=== PATIENT | female | born 1960 | race Caucasian/White ===

== ENCOUNTER 2016-05-19 09:57 | Day surgery (SDC) | payer BC ==
--- NOTE | ~2016-05-19 | EGD ---
EGD REPORT [facility] [address] [address] NAME: JUJU CARRILLO : 56 STATUS : [facility]#: [id number] AGE: 56 ADM/REG DATE : 05/19/16 MR#: [id number] REPORT SERV DATE: 05/19/16 DICTATED BY: COURTNEY MUJICA DATE: 05/19/16 REPORT STATUS : Draft [facility]: [facility] DATE: 05/19/16 Endoscopy Center Patient Name: Juju Carrillo Date of : 1960 Attending MD: COURTNEY MUJICA MD Procedure Date No Time: 05/19/2016 Procedure: Upper GI endoscopy Indications: Dysphagia Referring MD: IKE MENEZES Medicines: Monitored Anesthesia Care Complications: No immediate complications. Procedure: Pre-Anesthesia Assessment: - ASA Grade Assessment: III - A patient with severe systemic disease. After obtaining informed consent, the endoscope was passed under direct vision. Throughout the procedure, the patient's blood pressure, pulse, and oxygen saturations were monitored continuously. The GIF [id number] was introduced through the mouth, and advanced to the second part of duodenum. The upper GI endoscopy was accomplished without difficulty. The patient tolerated the procedure well. Findings: No endoscopic abnormality was evident in the esophagus to explain the patient's complaint of dysphagia. It was decided, however, to proceed with dilation of the entire esophagus. A guidewire was placed and the scope was withdrawn. Dilation was performed with a Savary dilator with mild resistance at 45 Fr and mild resistance at 48 Fr. The Z-line was irregular and was found at the gastroesophageal junction. Biopsies were taken with a cold forceps for histology. Localized mildly erythematous mucosa without bleeding was found in the gastric antrum. Biopsies were taken with a cold forceps for histology. The duodenal bulb and 2nd part of the duodenum were normal. The cardia and gastric fundus were normal on retroflexion. Impression: - No endoscopic esophageal abnormality to explain patient's dysphagia. Esophagus dilated. Dilated. - Z-line irregular, at the gastroesophageal junction. Biopsied. - Erythematous mucosa in the antrum. Biopsied. - Normal duodenal bulb and 2nd part of the duodenum. Recommendation: - Patient has a contact number available for emergencies. The signs and symptoms of potential delayed EGD REPORT [address] [place]. [address] NAME: JUJU CARRILLO : 56 STATUS : [facility]#: [id number] AGE: 56 ADM/REG DATE : 05/19/16 MR#: [id number] REPORT SERV DATE: 05/19/16 DICTATED BY: COURTNEY MUJICA DATE: 05/19/16 REPORT STATUS : Draft [facility]: [facility] DATE: 05/19/16 complications were discussed with the patient. Return to normal activities tomorrow. Written discharge instructions were provided to the patient. - Regular diet. - Continue present medications. - Await pathology results. - Follow an antireflux regimen. - Return to GI clinic PRN. Procedure Code(s): --- Professional --- 54615, Esophagogastroduodenoscopy, flexible, transoral; with insertion of guide wire followed by passage of dilator(s) through esophagus over guide wire 35615, Esophagogastroduodenoscopy, flexible, transoral; with biopsy, single or multiple Diagnosis Code(s): --- Professional --- R13.10, Dysphagia, unspecified K22.8, Other specified diseases of esophagus K31.9, Disease of stomach and duodenum, unspecified CPT copyright 2013 [employer]. All rights reserved. The codes documented in this report are preliminary and upon fuel cell builder review may be revised to meet current compliance requirements. COURTNEY MUJICA MD 05/19/2016 12:22 PM This report has been signed electronically. Number of Addenda: 0 Note Initiated On: 05/19/2016 11:56 AM Scope Withdrawal Time 0 hours 0 minutes 0 seconds [id number] [id number]
[~2016-05-19 09:57] MED LIST: ALTA2.5 PO; AMB10 PO; ASA5GR PO; ASAB PO; ATV.5 PO; CALTRA600D PO; COQ-10200 MG PO; COREG3 PO; COZ25 PO; CRESTOR5 MG PO; CYMBALTA30 PO; EFFIENT10 PO; HORMONE PATCH TOP; LIPITOR20 PO; LORTAB 5 PO; NORCO1 TA1 PO; P5 PO; PREV30 PO; VIVELLE SY0.1 MG/24 TOP; WELLXL150 PO; ZOL50 PO
== END 2016-05-19 23:59 | disposition home or self-care (01) ==
LOC: DMU 09:57
PROVIDERS: Internal Medicine Gastroenterology
PROC: 0DB48ZX Excision of Esophagogastric Junction, Via Natural or Artificial Opening Endoscopic, Diagnostic (ICD-10-PCS; 2016-05-19)
PROC: 0D758ZZ Dilation of Esophagus, Via Natural or Artificial Opening Endoscopic (ICD-10-PCS; principal; 2016-05-19 11:30)
PROC: 0DB68ZX Excision of Stomach, Via Natural or Artificial Opening Endoscopic, Diagnostic (ICD-10-PCS; 2016-05-19 11:30)
DX: K22.8 Other specified diseases of esophagus (principal); K31.9 Disease of stomach and duodenum, unspecified; I25.10 Atherosclerotic heart disease of native coronary artery without angina pectoris; I10 Essential (primary) hypertension; F32.9 Major depressive disorder, single episode, unspecified; E78.00 Pure hypercholesterolemia, unspecified; M19.90 Unspecified osteoarthritis, unspecified site; Z88.0 Allergy status to penicillin; Z91.013 Allergy to seafood; Z90.89 Acquired absence of other organs; Z95.5 Presence of coronary angioplasty implant and graft; Z90.49 Acquired absence of other specified parts of digestive tract; Z90.710 Acquired absence of both cervix and uterus; Z98.890 Other specified postprocedural states
CPT/HCPCS: 88305